=== PATIENT | female | born 2000 ===

== ENCOUNTER 2023-10-04 07:20 | Inpatient (IN) | payer SELFPAY ==
[2023-10-04] MEDS ORDERED: Methylergonovine 0.2 MG/1 ML Amp IM PRN (08:05)
[2023-10-04] MEDS ORDERED: Sodium Chloride 0.9% 10 ML Syringe FLUSH PRN (08:05)
[2023-10-04] MEDS ORDERED: Misoprostol 200 MCG Tab PO PRN (08:05)
[2023-10-04] MEDS ORDERED: Sodium Chloride 0.9% 20 ML SDV IV PRN (08:05)
[2023-10-04] MEDS ORDERED: Lidocaine 1% 50 ML MDV INJECT PRN (08:05)
[2023-10-04] MEDS ORDERED: Butorphanol 1 MG/ML SDV IVPUSH PRN (08:05)
[2023-10-04] MEDS ORDERED: Tranexamic Acid IN NACL,ISO-OS 1,000 MG in Premix Bag 1 BAG IV PRN ×2 (08:05)
[2023-10-04] MEDS ORDERED: Water For Irrigation,Sterile 1,000 ML Container IRR PRN (08:05)
[2023-10-04] MEDS ORDERED: Carboprost Tromethamine 250 MCG/1 mL Vial IM PRN (08:05)
[2023-10-04] MEDS ORDERED: Sodium Chloride 0.9% 2.5 ML Syringe FLUSH PRN (08:05)
[2023-10-04] MEDS ORDERED: Terbutaline 1 MG/ML SDV SUBCUT PRN (08:10)
[2023-10-04] MEDS ORDERED: Oxytocin/0.9 % Sodium Chloride 30 UNIT/500 ML BAG IV SCH ×2 (08:15)
[2023-10-04] MEDS ORDERED: ePHEDrine 50 MG/ML SDV IVPUSH PRN ×2 (08:44)
[2023-10-04] MEDS ORDERED: Phenylephrine HCl 0.5 MG/5 ML AMP IVPUSH PRN (08:44)
[2023-10-04] MEDS ORDERED: Ropivacaine HCl/PF 400 MG in Premix Bag 1 BAG EPIDUR SCH (08:45)
[2023-10-04] MEDS ORDERED: Ropivacaine/PF 400 MG/200 ML PCA ONE (09:02)
[2023-10-04] MEDS ORDERED: Bupivacaine 0.5% 10 ML SDV ONE (09:02)
[2023-10-04 09:03] LABS: HEMATOCRIT 28.2 % (37.0-47.0); HEMOGLOBIN 9.5 g/dL (12.0-16.0); MEAN CORPUSCULAR HEMOGLOBIN 28.8 pg (28.0-32.0); MEAN CORPUSCULAR HGB CONC 33.7 g/dL (32.0-36.0); MEAN CORPUSCULAR VOLUME 85.5 fL (83.0-99.0); MEAN PLATELET VOLUME 11.7 fL (9.4-12.3); PLATELET COUNT,PLT 156 K/uL (150-400); WHITE BLOOD CELL COUNT,WBC 8.03 K/uL (3.9-11.3)
[2023-10-04] MEDS: Lactated Ringers 1,000 ML IV SCH ×2 (09:40→10:12)
[2023-10-04] MEDS ORDERED: Benzocaine/Menthol 20%-0.5% Spray 78 GM Cannister TOP PRN (17:56)
[2023-10-04] MEDS ORDERED: Docusate Sodium 100 MG Cap PO PRN (17:56)
[2023-10-04] MEDS ORDERED: Bisacodyl 10 MG Supp RECTAL PRN (17:56)
[2023-10-04] MEDS ORDERED: Witch Hazel Medicated Pads 40/Jar TOP PRN (17:56)
[2023-10-04] MEDS ORDERED: Ibuprofen 800 MG Tab PO PRN (17:56)
[2023-10-04] MEDS ORDERED: Acetaminophen 500 MG Tab PO PRN (17:56)
[2023-10-04] MEDS ORDERED: Lanolin 100% Cream 7 GM Tube TOP PRN (17:56)
[2023-10-05 06:39] LABS: HEMATOCRIT 24.2 % (37.0-47.0); HEMOGLOBIN 8.1 g/dL (12.0-16.0)
== END 2023-10-05 18:04 | disposition home or self-care (01) | DRG 807 ==
LOC: MW.OBCHECK 07:20 → MW.OB 07:30 → MW.OBCHECK 11:44 → OBSVTOIN 15:50 → MW.OB 10-05 02:24
PROVIDERS: ADMIT Obstetrics & Gynecology Obstetrics; ATTEND Obstetrics & Gynecology Obstetrics
PROC: 10E0XZZ Delivery of Products of Conception, External Approach (ICD-10-PCS; principal; 2023-10-04)
PROC: 3E0P7VZ Introduction of Hormone into Female Reproductive, Via Natural or Artificial Opening (ICD-10-PCS; 2023-10-04)
DX: O80 Encounter for full-term uncomplicated delivery (principal); Z37.0 Single live birth; Z3A.38 38 weeks gestation of pregnancy
CPT/HCPCS: 36415; 51702; 59025; 59409; 85014; 85018; 85027; 86592; 86850; 86900; 86901; A9270-GY; J2590; J2795; J3490; J7120